=== PATIENT | male | born 1945 | race Caucasian/White ===

== ENCOUNTER 2019-05-11 18:41 | Emergency (ER) | payer MEDICARE, OTHER ==
[~2019-05-11] VITALS: Ht 182.9 cm; Wt 91.4 kg
[~2019-05-11 18:41] MED LIST: ADVIL200 MG PO; ANTIVERT 25MG25 MG PO; ASPIRIN 32325 MG/TAB PO; DUO-KAPS1 CAP PO; HCTZ 25MG TAB25 MG PO; LOPRESSOR 225 MG/TAB PO; NATURAL C500 MG PO; NITROSTAT0.4 MG/TAB SL; PRILOSEC 20MG20 MG PO; PRINIVIL20 MG PO; ZOCOR 20MG20 MG PO
[2019-05-11 18:47] VITALS: TEMP 98.3
[2019-05-11 19:12] LABS: BASO % 0.4 % (0.0-2.0); EOS # 0.2 (0.0-0.7); EOS % 2.1 % (0-4.0); GRAN # 8.2 (1.4-6.5); HEMATOCRIT 43.6 % (42.0-52.0); HEMOGLOBIN 15.2 g/dl (13.5-18.0); LYMPH # 1.3 (1.2-3.4); LYMPH % 12.6 % (20.0-51.0); MEAN CELL VOLUME 86 fl (80.0-100.0); MEAN CORPUSCULAR HEMOGLOBIN 30 pg (27.0-31.0); MEAN CORPUSCULAR HGB CONC 35 g/dl (33.0-37.0); MEAN PLATELET VOLUME 8.7 fl (7.4-10.4); MONO # 0.7 (0.1-0.6); MONO % 6.4 % (1.7-9.3); PLATELET COUNT 232 K/mm3 (130-400); RED BLOOD COUNT 5.09 M/mm3 (4.20-5.60)
[2019-05-11 19:22] LABS: ALANINE AMINOTRANSFERASE 27 U/L (21-72); ALBUMIN 4.5 gm/dL (3.5-5.0); ALKALINE PHOSPHATASE 101 U/L (50-136); ANION GAP 10 mmol/L (7-16); AST,SGOT 32 U/L (15-37); BLOOD UREA NITROGEN 25 mg/dL (9-20); CALCIUM 9.5 mg/dL (8.4-10.2); CARBON DIOXIDE 26 mmol/L (22-30); CHLORIDE 104 mmol/L (98-107); CREATININE, serum 1.26 (0.66-1.25); GLUCOSE 141 mg/dL (74-106); POTASSIUM 3.8 mmol/L (3.4-5.0); SODIUM 140 mmol/L (137-145); TOTAL PROTEIN 7.9 gm/dL (6.4-8.2)
[2019-05-11 19:35] LABS: PROTHROMBIN TIME 11.9 SECONDS (9.7-12.8)
[2019-05-11 19:36] LABS: TROPONIN-I < 0.012 ng/mL (0.000-0.035)
[2019-05-11 19:37] LABS: PARTIAL THROMBOPLASTIN TIME 28.6 SECONDS (26.0-37.0)
[2019-05-11 23:33] VITALS: BP 120/80; PULSE 97
== END 2019-05-11 23:34 | disposition short-term general hospital (02) ==
LOC: COL.ER 18:41
PROVIDERS: Family Medicine
DX: R00.0 Tachycardia, unspecified (principal); I10 Essential (primary) hypertension; Z79.82 Long term (current) use of aspirin
CPT/HCPCS: J7030; Q9967

== ENCOUNTER 2021-07-03 07:20 | Day surgery (SDC) | payer MEDICARE ==
[~2021-07-03] VITALS: Ht 183 cm; Wt 86.4 kg
[2021-07-03] VITALS (10 sets, daily range): BP systolic 94–133; BP diastolic 60–75; PULSE 63–74; TEMP 97.3
[2021-07-03 08:09] LABS: HEMATOCRIT 44.3 % (42.0-52.0); HEMOGLOBIN 15.5 g/dl (13.5-18.0); MEAN CELL VOLUME 87 fl (80.0-100.0); MEAN CORPUSCULAR HEMOGLOBIN 31 pg (27.0-31.0); MEAN CORPUSCULAR HGB CONC 35 g/dl (33.0-37.0); MEAN PLATELET VOLUME 8.9 fl (7.4-10.4); PLATELET COUNT 205 K/mm3 (130-400); RED BLOOD COUNT 5.08 M/mm3 (4.20-5.60); REDCELL DISTRIBUTION WIDTH-CV 12.9 % (11.5-14.5)
[2021-07-03 08:13] LABS: INR 1.1 (0.8-3.0)
[2021-07-03 08:16] LABS: PARTIAL THROMBOPLASTIN TIME 27.8 SECONDS (26.0-37.0)
[2021-07-03] MEDS ORDERED: ADVIL200 MG PO (08:48)
[2021-07-03] MEDS ORDERED: ASPIRIN E.C. 8181 MG PO (08:48)
[2021-07-03] MEDS ORDERED: NITRO-DUR0.2 MG/PAT TD (08:50)
[2021-07-03] MEDS ORDERED: PROTONIX20 MG PO (08:51)
[2021-07-03] MEDS ORDERED: PRINZIDE 12.5 M1 TAB PO (08:52)
[2021-07-03] MEDS ORDERED: LOPRESSOR100 MG PO (08:53)
[2021-07-03] MEDS ORDERED: SYNTHROID0.112 MG/T PO (08:53)
--- NOTE | 2021-07-03 09:31 | NUR ---
SEE MERGE FOR MEDICATION ADMINISTRATIONS TIMES/DOSAGES AND INTRA/POST SEDATION ASSESSMENT.
[2021-07-03 10:01] LABS: CALCIUM 9.5 mg/dL (8.4-10.2); CREATININE, serum 0.83 mg/dL (0.72-1.25); POTASSIUM 4.1 mmol/L (3.5-4.5)
--- NOTE | 2021-07-03 13:00 | NUR ---
DC instructions were reviewed with pt and his . Both expressed understanding. Air was removed from TR band in 2 ml increments with no bleeding or complication. Rt radial puncture site was dressed with bandaid and 2x2. INT DC'd with catheter intact. Pt is steady on feet in room. He was assisted out to 's car by wheelchair with belongings.
== END 2021-07-03 13:00 | disposition home or self-care (01) ==
LOC: COL.CAR 07:20
PROVIDERS: Internal Medicine Cardiovascular Disease
DX: I25.110 Atherosclerotic heart disease of native coronary artery with unstable angina pectoris (principal); I49.3 Ventricular premature depolarization; R94.39 Abnormal result of other cardiovascular function study; R07.89 Other chest pain; R06.00 Dyspnea, unspecified
CPT/HCPCS: C1769; J1644; J2250; J3010; Q9967

== ENCOUNTER 2021-12-02 18:54 | Emergency (ER) | payer MEDICARE, OTHER ==
[~2021-12-02] VITALS: Ht 182.9 cm; Wt 86.4 kg
[~2021-12-02 18:54] MED LIST changes: +ASPIRIN E.C. 8181 MG PO; +LOPRESSOR100 MG PO; +NITRO-DUR0.2 MG/PAT TD; +PRINZIDE 12.5 M1 TAB PO; +PROTONIX20 MG PO; +SYNTHROID0.112 MG/T PO
[2021-12-02 19:36] LABS: BASO % 0.4 % (0.0-2.0); EOS # 0.3 K/mm3 (0.0-0.7); EOS % 3.4 % (0.0-4.0); GRAN # 6.2 K/mm3 (1.4-6.5); GRAN % 69.3 % (42.2-75.2); HEMATOCRIT 41.4 % (42.0-52.0); LYMPH # 1.8 K/mm3 (1.2-3.4); LYMPH % 19.9 % (20.0-51.0); MEAN CELL VOLUME 84 fl (80.0-100.0); MEAN CORPUSCULAR HEMOGLOBIN 30 pg (27-31); MEAN CORPUSCULAR HGB CONC 36 g/dl (33.0-37.0); MEAN PLATELET VOLUME 8.9 fl (7.4-10.4); MONO # 0.6 K/mm3 (0.1-0.6); MONO % 6.7 % (1.7-9.3); PLATELET COUNT 208 K/mm3 (130-400); RED BLOOD COUNT 4.93 M/mm3 (4.20-5.60); REDCELL DISTRIBUTION WIDTH-CV 12.6 % (11.5-14.5)
[2021-12-02 19:48] LABS: ALANINE AMINOTRANSFERASE 23 U/L (0-55); ALBUMIN 4.3 gm/dL (3.4-4.8); ALKALINE PHOSPHATASE 73 U/L (40-150); ANION GAP 10 mmol/L (7-16); AST,SGOT 23 U/L (5-34); BILIRUBIN,TOTAL 1.2 mg/dL (0.2-1.2); BLOOD UREA NITROGEN 24 mg/dL (8-26); CALCIUM 9.2 mg/dL (8.4-10.2); CARBON DIOXIDE 25 mmol/L (23-31); CHLORIDE 104 mmol/L (98-107); CREATININE, serum 1.08 mg/dL (0.72-1.25); GLUCOSE 181 mg/dL (70-99); MAGNESIUM 1.9 mg/dL (1.6-2.6); POTASSIUM 3.7 mmol/L (3.5-4.5); SODIUM 139 mmol/L (136-145); TOTAL PROTEIN 7.3 gm/dL (6.2-8.1)
[2021-12-02 20:11] LABS: TROPONIN-I < 0.010 ng/mL (0.00-0.033)
[2021-12-02 21:51] VITALS: BP 137/68; PULSE 89; TEMP 98.2
== END 2021-12-02 21:54 | disposition home or self-care (01) ==
LOC: COL.ER 18:54
PROVIDERS: Emergency Medicine
DX: I49.3 Ventricular premature depolarization (principal); Z95.818 Presence of other cardiac implants and grafts
CPT/HCPCS: J7030

== ENCOUNTER 2022-02-12 06:35 | Inpatient (IN) | payer MEDICARE, OTHER ==
[~2022-02-12] VITALS: Wt 85.3 kg
[2022-02-12] VITALS (12 sets, daily range): BP systolic 102–135; BP diastolic 58–97; PULSE 65–76; TEMP 97.8–98.3
[2022-02-12 07:52] LABS: INR 1.1 (0.8-3.0); PROTHROMBIN TIME 12.3 SECONDS (9.7-12.8)
[2022-02-12 07:57] LABS: BASO % 0.5 % (0.0-2.0); EOS # 0.4 K/mm3 (0.0-0.7); EOS % 6.2 % (0.0-4.0); GRAN # 3.5 K/mm3 (1.4-6.5); GRAN % 61.4 % (42.2-75.2); HEMATOCRIT 39.3 % (42.0-52.0); HEMOGLOBIN 13.9 g/dl (13.5-18.0); LYMPH # 1.4 K/mm3 (1.2-3.4); LYMPH % 23.6 % (20.0-51.0); MEAN CELL VOLUME 85 fl (80.0-100.0); MEAN CORPUSCULAR HEMOGLOBIN 30 pg (27-31); MEAN CORPUSCULAR HGB CONC 35 g/dl (33.0-37.0); MEAN PLATELET VOLUME 8.6 fl (7.4-10.4); MONO # 0.5 K/mm3 (0.1-0.6); PLATELET COUNT 199 K/mm3 (130-400); RED BLOOD COUNT 4.61 M/mm3 (4.20-5.60); REDCELL DISTRIBUTION WIDTH-CV 12.6 % (11.5-14.5)
[2022-02-12 08:07] LABS: CALCIUM 9.2 mg/dL (8.4-10.2); CREATININE, serum 0.76 mg/dL (0.72-1.25)
[2022-02-12] MEDS ORDERED: GLUCOPHAGE500 MG/TAB PO (08:14)
--- NOTE | 2022-02-12 09:49 | NUR ---
See merge for all medication, assessment, intervention, and vital sign times.
--- NOTE | 2022-02-12 12:58 | NUR ---
Patient admitted to room 348 from [facility]. Report recieved from ABBY Rivas. Pharmacy, medication, and allergies reviewed. Admission paperwork completed. Pacemaker site dressing is CDI, site is soft and free from hematoma. Patient rates pain a 6/10, but states pain is at a "comfortable" level. Loop recorder site dressing is CDI, site is also soft and free from hematoma. Dynamap in use to monitor post op vitals. Diet advancing without N/V. Patient is currently on bedrest. Denies any further pain, discomfort, SOA, or further needs at this time. Call light in reach. at the bedside.
--- NOTE | 2022-02-12 13:38 | NUR ---
[place]: Unknown Situation: container coordinator went to room on rounds Background: PT was resting and content Assessment: PT appreciated the visit Recommendation: [employer]rer will follow up as needed
--- NOTE | 2022-02-12 19:30 | NUR ---
Post op vitals completed. Ice pack in place on pacer site. Surgical site dressing CDI. Patient denies any pain, discomfort, SOA, or further needs at this time. Call light in reach. Site soft and free from hematoma.
--- NOTE | 2022-02-12 20:00 | NUR ---
PT IN BED, HAS LEFT ARM IN SLING. DRSG TO LEFT CHEST AND LOWER CHEST D/I. PT HAD PACEMAKER PLACED AND LOOP RECORDER REMOVED TODAY. HAS SMALL ICE PACK TO LEFT CHEST, DENIES PAIN. INT TO LEFT FOREARM, FLUSHES WELL. PT HAS SCDS ON. WILL MONITOR FOR CHANGES.
--- NOTE | 2022-02-12 20:56 | NUR ---
PT AWAKE, TAKES HS MEDS. DENIES NEED FOR PAIN MEDS AT THIS TIME.
[2022-02-13 03:32] VITALS: BP 113/63; PULSE 64; TEMP 97.4
--- NOTE | 2022-02-13 05:32 | NUR ---
PT HAS RESTED FAIR THIS SHIFT. DENIES NEED FOR PAIN MEDS AT THIS TIME.
[2022-02-13 06:51] LABS: BASO % 0.3 % (0.0-2.0); EOS # 0.3 K/mm3 (0.0-0.7); EOS % 4.9 % (0.0-4.0); GRAN # 4.4 K/mm3 (1.4-6.5); GRAN % 64.5 % (42.2-75.2); HEMATOCRIT 41.5 % (42.0-52.0); HEMOGLOBIN 14.2 g/dl (13.5-18.0); LYMPH # 1.5 K/mm3 (1.2-3.4); MEAN CELL VOLUME 88 fl (80.0-100.0); MEAN CORPUSCULAR HEMOGLOBIN 30 pg (27-31); MEAN CORPUSCULAR HGB CONC 34 g/dl (33.0-37.0); MEAN PLATELET VOLUME 9.1 fl (7.4-10.4); MONO # 0.5 K/mm3 (0.1-0.6); PLATELET COUNT 197 K/mm3 (130-400); REDCELL DISTRIBUTION WIDTH-CV 12.6 % (11.5-14.5)
[2022-02-13 07:09] LABS: CALCIUM 8.9 mg/dL (8.4-10.2); CREATININE, serum 0.73 mg/dL (0.72-1.25); MAGNESIUM 1.9 mg/dL (1.6-2.6); POTASSIUM 4.1 mmol/L (3.5-4.5)
[2022-02-13 07:29] VITALS: BP 128/59; PULSE 66; TEMP 97.7
--- NOTE | 2022-02-13 10:45 | NUR ---
Supervisor Frame Assembly met with patient to discuss discharge planning. Patient lives in [place] with his , Sylvia (ph#[phone]) who is at bedside. Patient goes to the [facility] for primary care and his medications. Patient does not use any DME and is independent with ADLS. Patient reports that his , Sylvia is his DPOA-HC. SW located copy of DPOA-HC in EMR which designates Sylvia as primary and their sons, Henry and Filipe as alternates. Patient plans to return home at time of discharge. Discharge Plan: Home
[2022-02-13 11:52] VITALS: BP 122/80; PULSE 67; TEMP 98.2
[2022-02-13 16:43] VITALS: BP 102/50; PULSE 66; TEMP 98.4
--- NOTE | 2022-02-13 20:20 | NUR ---
Pt. sitting up in bed. Pt. is A&OX3, assessment complete. INT to lt. forearm patent. Pt. has dressings to lt. chest pacer site and lt. lower chest loop recorder removal site. Dressings CDI. Sling to lt. arm. Pt. denies pain or other needs at this time. Call light within reach.
[2022-02-13 20:29] VITALS: BP 106/62; PULSE 72; TEMP 98.8
[2022-02-13 23:40] VITALS: BP 112/70; PULSE 68; TEMP 97.9
[2022-02-14 03:40] VITALS: BP 122/69; PULSE 62; TEMP 97.8
[2022-02-14 06:29] LABS: BASO % 0.6 % (0.0-2.0); EOS # 0.4 K/mm3 (0.0-0.7); EOS % 5.9 % (0.0-4.0); GRAN % 60.8 % (42.2-75.2); HEMATOCRIT 40.5 % (42.0-52.0); LYMPH # 1.6 K/mm3 (1.2-3.4); LYMPH % 24.4 % (20.0-51.0); MEAN CELL VOLUME 88 fl (80.0-100.0); MEAN CORPUSCULAR HEMOGLOBIN 30 pg (27-31); MEAN CORPUSCULAR HGB CONC 35 g/dl (33.0-37.0); MEAN PLATELET VOLUME 8.8 fl (7.4-10.4); MONO # 0.5 K/mm3 (0.1-0.6); PLATELET COUNT 182 K/mm3 (130-400); RED BLOOD COUNT 4.61 M/mm3 (4.20-5.60); REDCELL DISTRIBUTION WIDTH-CV 12.8 % (11.5-14.5)
[2022-02-14 06:50] LABS: CALCIUM 8.9 mg/dL (8.4-10.2); CREATININE, serum 0.72 mg/dL (0.72-1.25); MAGNESIUM 1.8 mg/dL (1.6-2.6); POTASSIUM 4.1 mmol/L (3.5-4.5)
[2022-02-14 08:33] VITALS: BP 111/53; PULSE 65; TEMP 97.6
--- NOTE | 2022-02-14 09:28 | NUR ---
Follow-up; Patient and his thanked Physical Geographer for greeting them and wishing them well. They state they are going home today.
--- NOTE | 2022-02-14 09:46 | NUR ---
PT RESTING IN BED, AM MEDS GIVEN ORDERED. PT REPORTS "MINIMAL PAIN". VSS, PLAN ON DISCHARGE LATER TODAY.
[2022-02-14] MEDS ORDERED: BETAPACE 80MG80 MG PO (11:38)
[2022-02-14] MEDS ORDERED: CEPHALEXIN500 M1 PO (11:39)
[2022-02-14 13:12] VITALS: BP 100/81; PULSE 62; TEMP 97.7
--- NOTE | 2022-02-14 14:41 | NUR ---
REVIEWED DISCHARGE INSTRUCTIONS QUESTIONS ANSWERED, PT LEFT UNIT AMBULATORY.
== END 2022-02-14 14:45 | disposition home or self-care (01) | DRG 244 ==
LOC: COL.CAR 06:35 → SURG 11:35 → COL.CAR 11:36 → SURG 11:37 → COL.CAR 11:37 → SURG 02-13 18:12
PROVIDERS: ADMIT Internal Medicine Cardiovascular Disease
PROC: 0JH606Z Insertion of Pacemaker, Dual Chamber into Chest Subcutaneous Tissue and Fascia, Open Approach (ICD-10-PCS; principal; 2022-02-12)
PROC: 02HK3JZ Insertion of Pacemaker Lead into Right Ventricle, Percutaneous Approach (ICD-10-PCS; 2022-02-12)
PROC: 02H63JZ Insertion of Pacemaker Lead into Right Atrium, Percutaneous Approach (ICD-10-PCS; 2022-02-12)
PROC: 0JPT02Z Removal of Monitoring Device from Trunk Subcutaneous Tissue and Fascia, Open Approach (ICD-10-PCS; 2022-02-12)
DX: I49.5 Sick sinus syndrome (principal); I48.0 Paroxysmal atrial fibrillation; Z79.82 Long term (current) use of aspirin; Z95.818 Presence of other cardiac implants and grafts; Z88.8 Allergy status to other drugs, medicaments and biological substances
CPT/HCPCS: C1769; C1785; C1894; C1898; J0690; J2250; J3010; J7030